=== PATIENT | male | born 1990 | race Caucasian/White ===

== ENCOUNTER 2018-11-16 15:35 | Emergency (ER) | payer BC ==
[2018-11-16] MEDS ORDERED: Alum Hydrox/Mag Hydrox/Simeth 30 ML, Lidocaine 2% 15 ML PO ONE ×2 (16:44)
[2018-11-16] MEDS ORDERED: Ondansetron 4 MG Tab.DIS PO ONE (16:45)
[2018-11-16] MEDS ORDERED: Ketorolac 30 MG/ML SDV IM ONE (17:54)
--- NOTE | 2018-11-16 18:08 | EDM.PDOC ---
ED HPI GENERAL MEDICAL PROBLEM - General Chief Complaint: Abdominal Pain Stated Complaint: ABDOMINAL PAIN Time Seen by Provider: 11/16/18 16:17 Source of Information: Reports: Patient, RN Notes Reviewed History Limitations: Reports: No Limitations - History of Present Illness INITIAL COMMENTS - FREE TEXT/NARRATIVE: Patient is a 28-year-old male who presents to the ED today for the evaluation of midepigastric abdominal pain. He states that he woke up this morning with upper abdominal pain, and some feelings of nausea. He notes a previous history of IBS and lactose intolerance. He states that he did not have any foods that normally upset him last night. They ate chicken and coleslaw. He did try to take some Tums this morning with this did not help. He states that he has been burping more frequently than he normally does today. The patient states that he has a normal appetite for himself. He states that the pain is always present at his epigastrium. He notes that he did have a normal BM for himself today and normally has 2 per day. He states that he did not drink an excessive amount of alcohol yesterday, he further notes that he is not much of an alcohol drinker at all. He notes his primary care provider to be Dr. Swenson. He further notes no previous history of any gallbladder issues, or ulcer issues. Regarding his IBS, he states that he has a very irregular bowel movements that are unpredictable. He has not taken any medications to help this. He states he has cut out all caffeine from his diet as this seemed to aggravate his diarrhea or IBS. Lower Abdomen Pain Score (Numeric/FACES): 7 - Related Data Allergies Allergy/AdvReac Type Severity Reaction Status Date / Time Sulfa (Sulfonamide Allergy Other Verified 11/16/18 15:43 Antibiotics) Home Meds: Home Meds FLUoxetine HCl [Fluoxetine] 20 mg PO DAILY 11/16/18 [History] Ondansetron [Zofran ODT] 8 mg PO Q8H PRN #28 tab.dis 11/16/18 [Rx] Past Medical History Gastrointestinal History: Reports: Irritable Bowel Syndrome, Other (See Below) ( Lactose intolerance) Psychiatric History: Reports: Dementia - Past Surgical History Dermatological Surgical History: Reports: Other (See Below) Social & Family History - Family History Family Medical History: Noncontributory - Tobacco Use Smoking Status *Q: Never Smoker - Caffeine Use Caffeine Use: Reports: None - Recreational Drug Use Recreational Drug Use: No ED ROS GENERAL - Review of Systems Review Of Systems: See Below Constitutional: Reports: Fever (no documented fever, but minor hot flushes today ). Denies: Decreased Appetite, Weight Loss HEENT: Reports: No Symptoms Respiratory: Reports: No Symptoms Cardiovascular: Reports: No Symptoms Endocrine: Reports: No Symptoms GI/Abdominal: Reports: Abdominal Pain (mid epigastric), Nausea, Vomiting (1 episode in ER ). Denies: Constipation, Diarrhea : Denies: Dysuria Musculoskeletal: Reports: No Symptoms Skin: Reports: No Symptoms Neurological: Reports: No Symptoms Psychiatric: Reports: No Symptoms Hematologic/Lymphatic: Reports: No Symptoms Immunologic: Reports: No Symptoms ED EXAM, GI/ABD - Physical Exam Exam: See Below Exam Limited By: No Limitations General Appearance: Alert, WD/WN, No Apparent Distress, Obese Eyes: Bilateral: Normal Appearance Ears: Normal External Exam Nose: Normal Inspection Throat/Mouth: Normal Inspection, Normal Lips, Normal Teeth, Normal Gums, Normal Oropharynx, Normal Voice, No Airway Compromise Head: Atraumatic, Normocephalic Neck: Normal Inspection Respiratory/Chest: No Respiratory Distress, Lungs Clear, Normal Breath Sounds, No Accessory Muscle Use, Chest Non-Tender Cardiovascular: Normal Peripheral Pulses, Regular Rate, Rhythm, No Murmur GI/Abdominal Exam: Normal Bowel Sounds, Soft, No Distention, No Mass, Tender ( epigastrium) Back Exam: Normal Inspection, Full Range of Motion Extremities: Normal Inspection, Normal Capillary Refill Neurological: Alert, Oriented, Normal Cognition, No Motor/Sensory Deficits Psychiatric: Normal Affect, Normal Mood Skin Exam: Warm, Dry, Intact, Normal Color, No Rash Course - Vital Signs Last Recorded V/S: Last Vital Signs Temp 97.2 F 11/16/18 15:45 Pulse 67 11/16/18 15:45 Resp 16 11/16/18 15:45 BP 116/74 11/16/18 15:45 Pulse Ox 99 11/16/18 15:45 - Orders/Labs/Meds Meds: Medications Discontinued Medications Generic Name Dose Route Start Last Admin Trade Name Freq PRN Reason Stop Dose Admin Al Hydroxide/Mg Hydroxide 30 0 ml 11/16/18 16:44 11/16/18 17:00 ml/ Lidocaine HCl 15 ml PO 11/16/18 16:45 45 ml ONETIME ONE Administration Ketorolac Tromethamine 30 mg 11/16/18 17:54 11/16/18 18:43 Toradol IM 11/16/18 17:55 30 mg ONETIME ONE Administration Ondansetron HCl 4 mg 11/16/18 16:45 11/16/18 17:00 Zofran Odt PO 11/16/18 16:46 4 mg ONETIME ONE Administration - Re-Assessments/Exams Free Text/Narrative Re-Assessment/Exam: 11/16/18 18:12 Patient presents to the ED for the evaluation of epigastric pain. I did order 4 mg ODT Zofran and a GI cocktail. The patient states that he did get the most relief from the Zofran, he was still having some mild epigastric pain after the GI cocktail. I did order 30 mg IM Toradol for general aches. I'm suspicious that he may have gastroenteritis on top of his IBS issues at this time. We'll give general recommendations for clear liquid diet for the next 24-48 hours with advance to bland as tolerated and ODT Zofran PRN for feelings of nausea. 11/16/18 19:10 Patient states that he feels better after the IM Toradol, I will give general recommendations and discharge him home. Departure - Departure Time of Disposition: 18:14 Disposition: Home, Self-Care 01 Condition: Fair Clinical Impression: Gastroenteritis - Discharge Information *PRESCRIPTION DRUG MONITORING PROGRAM REVIEWED*: No *COPY OF PRESCRIPTION DRUG MONITORING REPORT IN PATIENT STEVEN: No Prescriptions: Ondansetron [Zofran ODT] 8 mg PO Q8H PRN #28 tab.dis PRN Reason: Nausea Instructions: Viral Gastroenteritis, Adult, [id number] Referrals: Daniel Smith MD [Primary Care Provider] - Forms: ED Department Discharge Additional Instructions: You have been evaluated in the ED for nausea and your upper abdominal pain. It is likely that this is caused from a viral gastroenteritis. Over the next 24-48 hours please try to limit your diet to clear liquids and advance to bland diet as tolerated to alleviate symptoms of nausea. You may take [id number] Tylenol and/or ibuprofen as needed for general aches and pains. Please use the Zofran every 8 hours as needed for nausea. Recommend follow-up with your primary care provider if your symptoms are not much better. Recommend that you get a gastrointestinal referral for further evaluation of your IBS symptoms. Please return to the ED if your symptoms should change or worsen.
== END 2018-11-16 19:26 | disposition home or self-care (01) ==
LOC: JD.ED 15:35
DX: K52.9 Noninfective gastroenteritis and colitis, unspecified (principal); Z88.2 Allergy status to sulfonamides; Z79.899 Other long term (current) drug therapy
CPT/HCPCS: 96372; 99283; A9270; J1885